=== PATIENT | female | born 1975 | race Caucasian/White ===

== ENCOUNTER 2017-07-14 22:09 | Emergency (ER) | payer OTHER ==
[~2017-07-14] VITALS: Ht 157.5 cm; Wt 64.0 kg
[~2017-07-14 22:09] MED LIST: CALC600T5 PO; IRON45TA2 PO; PREN1TAB17 PO
[2017-07-14 22:13] VITALS: Ht 157.5 cm; Wt 64.0 kg
[2017-07-14] MEDS ORDERED: METOCLOPRAMIDE 10 MG INJ IV STA (23:50)
[2017-07-14] MEDS ORDERED: SOD CHLORIDE 0.9% 1,000 ML IV STA (23:50)
[2017-07-14] MEDS ORDERED: DIPHENHYDRAMINE 50 MG INJ IV STA (23:50)
[2017-07-14] MEDS ORDERED: KETOROLAC 30 MG INJ IV STA (23:50)
--- NOTE | 2017-07-15 01:17 | RADRPT ---
PROCEDURE: Noncontrast CT Head. CLINICAL INDICATION: Headache TECHNIQUE: Noncontrast CT of the head was obtained. The administered radiation dose was CTDI vol = 45 mGy, DLP = 720 mGy-cm. One or more of the following dose reduction techniques were used: automate d exposure control, adjustment of the mA and/or kV according to patient size and/or use of iterative reconstruction technique. COMPARISON: No pertinent prior examinations were submitted for comparison. FINDINGS: The ventricles and sulci are within normal limits. There is no acute intracranial hemorrhage or ext ra-axial fluid collection. There is no mass effect. No midline shift is identified. There is no loss of martin-white differentiation to suggest acute infarction. The orbits are within normal limits. The paranasal sinuses and mastoid air cells are without fluid. No destructive osseous lesion is identified. IMPRESSION: No acute findings. RPTAT: HIKT .Osmar Rodríguez MD, MD Date Time Electronically viewed and signed by .Osmar Rodríguez MD, on 07/15/2017 01:17 .T/
[2017-07-15] MEDS ORDERED: ONDA4TAB11 PO (01:33)
[2017-07-15] MEDS ORDERED: EXCED PO (01:33)
--- NOTE | 2017-07-15 01:38 | ERD ---
ER Documentation Chief Complaint Date/Time DATE: 07/15/17 TIME: 01:36 Chief Complaint WALSH x45 min [employer], "neck feels stiff" -nausea. -light sensitivity Took Advil HPI 41-year-old female presents with headache that began at about 9:30 PM tonight. She states it was gradual in onset and bilateral frontal and radiates to her neck. She has nausea but no vomiting. No photosensitivity or changes to her vision. She is not diabetic. She took ibuprofen and it only helped a little bit. No fever. No trauma. ROS All systems reviewed and are negative except as per history of present illness. Medications Home Meds Active Scripts Ondansetron (Zofran Odt) 4 Mg Tab.rapdis, 4 MG PO Q6, #20 Prov:ABEL ELIAS PA-C 07/15/17 Acetaminophen/Aspirin/Caffeine* (Excedrin*) 1 Tab Tab, 1 TAB PO Q6, #30 TAB Prov:ABEL ELIAS PA-C 07/15/17 Reported Medications Iron,Carbonyl (IRON) 45 Mg Tablet, 45 MG PO DAILY 06/21/13 Calcium Carbonate (CALCIUM) 600 Mg Tablet, 600 MG PO DAILY 06/21/13 Vit-Iron Fumarate-FA ( Tablet) 1 Each Tablet, 1 EACH PO DAILY 06/20/13 Allergies Allergies: Uncoded Allergies: NKDA (Allergy, Unknown, 06/20/13) PMhx/Soc Medical and Surgical Hx: pt denies Medical Hx, pt denies Surgical Hx Hx Alcohol Use: No Hx Substance Use: No Hx Tobacco Use: No Smoking Status: Never smoker FmHx Family History: No diabetes Physical Exam Vitals Vital Signs Date Time Temp Pulse Resp B/P Pulse Ox O2 Delivery O2 Flow Rate FiO2 07/14/17 22:13 99.0 72 18 156/96 99 Physical Exam INITIAL VITAL SIGNS: Reviewed by me GENERAL: Awake, alert and oriented x 4, well appearing, nontoxic, speaking in full sentences. No acute distress HEAD: Atraumatic NECK: Supple. No masses. Full range of motion. No meningismus. No midline tenderness. THROAT: No tonilar erythema or edema. No exudates. Uvula midline. No kissing tonsils. RESPIRATORY: Clear to auscultation bilaterally. Symmetric chest wall rise. No wheezing or rales. No accessory muscle use. CV: Regular rate and rhythm. No murmurs, rubs, or gallops. ABDOMEN: Soft, non-distended. Nontender. Negative [place]. Negative McBurneys point tenderness. No CVA tenderness bilaterally. No guarding. No rebound. EXTREMITIES: No clubbing or cyanosis. No edema. Moving all extremities normally. NEUROLOGIC: Normal mental status and speech. Face is symmetric. Moves all extremities equally. Motor and sensory distally intact. Normal coordination. Ambulates with a strong steady gait. Results 24 hrs Laboratory Tests Test 07/15/17 01:31 Bedside Glucose 100mg/dL Current Medications Medications (Trade) Dose Ordered Sig/Kim Route PRN Reason Start Time Stop Time Status Last Admin Dose Admin Sodium Chloride (NS) 1,000 ml @ 1,000 mls/hr Q1H STAT IV 07/14/17 23:50 07/15/17 00:49 DC 07/15/17 00:18 Metoclopramide HCl (Reglan) 10 mg ONCE STAT IV 07/14/17 23:50 07/14/17 23:52 DC 07/15/17 00:18 Ketorolac Tromethamine (Toradol) 30 mg ONCE STAT IV 07/14/17 23:50 07/14/17 23:52 DC 07/15/17 00:18 Diphenhydramine HCl (Benadryl) 12.5 mg ONCE STAT IV 07/14/17 23:50 07/14/17 23:52 DC 07/15/17 00:19 Procedures/MDM 41-year-old female presents with headache. The differential diagnosis includes but is not limited to subdural hematoma, epidural hematoma, intracerebral hemorrhage, occult trauma, CVA, meningitis, encephalitis, hypertension, tension , migraine, cluster, cervical spine disease, and others. Patient's blood pressure was elevated (>120/80) but appears stable without evidence of hypertension emergency or urgency. The patient was counseled about the risks of hypertension and urged to pursue outpatient monitoring and therapy within a week with their primary care physician. Otherwise vital signs are within normal limits. Her neurological examination is normal. CT scan showed no acute abnormalities. She was given IV fluids and Reglan and Benadryl and Toradol with improvement of her symptoms. She was discharged with Zofran and Excedrin. Accu-Chek was 100. Patient counseled regarding my diagnostic impression and care plan. Prior to discharge all questions answered. Pt agrees with treatment plan and understands strict return precautions. Pt is instructed to follow up with primary care provider within 24- 48 hours. Precautionary instructions provided including instructions to return to the ER if not improving or for any worsening or changing symptoms or concerns. Departure Diagnosis: Primary Impression: Headache Condition: Stable Patient Instructions: Self-Care for Headaches Additional Instructions: Llame al doctor YONG y gaviota naima MARNI PARA DENTRO DE 1-2 JOHNSON.Dgale a la secretaria que nosotros le instruimos hacer esta marni.Avise o llame si raphael condicin se empeora antes de la marni. Regresa aqui si peor o no mejor. ABEL ELIAS PA-C Jul 15, 2017 01:38
[2017-07-15 01:51] VITALS: BP 138/84; PULSE 70; RESP 18; TEMP 99
== END 2017-07-15 01:51 | disposition home or self-care (01) ==
LOC: FTE 22:09
DX: R51 Headache (principal)
CPT/HCPCS: 70450; 82962; 96374; 96375; 99285; J1200; J1885; J2765; J7030

== ENCOUNTER 2017-07-29 11:41 | Emergency (ER) | payer MEDICAID ==
[~2017-07-29] VITALS: Ht 154.9 cm; Wt 63.5 kg
[~2017-07-29 11:41] MED LIST changes: +EXCED PO; +ONDA4TAB11 PO
[2017-07-29 11:48] VITALS: Ht 154.9 cm; Wt 63.5 kg
[2017-07-29 13:24] LABS: URINE BLOOD (Dip) POC Trace-lysed (NEGATIVE)
--- NOTE | 2017-07-29 14:03 | ERD ---
ER Documentation Chief Complaint Chief Complaint "WARMTH IN CHEST" WITH HIGH BLOOD PRESSURE LAST NIGHT. LOTS OF STRESS. HPI This 41-year-old female presents with complaints of elevated blood pressure that she checked at home yesterday. Was 170/90. She rechecked it was 130/80. She is also been under a lot of stress and feels possible sensation of warmth in her chest. She denies any current chest pain, shortness breath, fevers, recent illnesses. She denies any history of high cholesterol, treated hypertension, family history, smoking, diabetes. ROS All systems reviewed and are negative except as per history of present illness. Medications Home Meds Active Scripts Ondansetron (Zofran Odt) 4 Mg Tab.rapdis, 4 MG PO Q6, #20 Prov:ABEL ELIAS PA-C 07/15/17 Acetaminophen/Aspirin/Caffeine* (Excedrin*) 1 Tab Tab, 1 TAB PO Q6, #30 TAB Prov:ABEL ELIAS PA-C 07/15/17 Reported Medications Iron,Carbonyl (IRON) 45 Mg Tablet, 45 MG PO DAILY 06/21/13 Calcium Carbonate (CALCIUM) 600 Mg Tablet, 600 MG PO DAILY 06/21/13 Vit-Iron Fumarate-FA ( Tablet) 1 Each Tablet, 1 EACH PO DAILY 06/20/13 Allergies Allergies: Uncoded Allergies: NKDA (Allergy, Unknown, 06/20/13) PMhx/Soc Medical and Surgical Hx: pt denies Medical Hx, pt denies Surgical Hx History of Surgery: No Anesthesia Reaction: No Hx Neurological Disorder: No Hx Respiratory Disorders: No Hx Cardiac Disorders: No Hx Psychiatric Problems: No Hx Miscellaneous Medical Probl: No Hx Alcohol Use: No Hx Substance Use: No Hx Tobacco Use: No Smoking Status: Never smoker Physical Exam Vitals Vital Signs Date Time Temp Pulse Resp B/P Pulse Ox O2 Delivery O2 Flow Rate FiO2 07/29/17 11:48 98.4 80 18 139/93 99 Physical Exam Const: [], Not ill-appearing. Head: Atraumatic Eyes: Normal Conjunctiva ENT: Normal External Ears, Nose and Mouth. Neck: Full range of motion..~ No meningismus. Resp: Clear to auscultation bilaterally Cardio: Regular rate and rhythm, no murmurs Abd: Soft, non tender, non distended. Normal bowel sounds Skin: No petechiae or rashes Back: No midline or flank tenderness Ext: No cyanosis, or edema Neur: Awake and alert Psych: Normal Mood and Affect Results 24 hrs Laboratory Tests Test 07/29/17 13:26 Bedside Urine pH (LAB) 7.0 Bedside Urine Protein (LAB) Negative Bedside Urine Glucose (UA) Negative Bedside Urine Ketones (LAB) Negative Bedside Urine Blood Trace-lysed Bedside Urine Nitrite (LAB) Negative Bedside Urine Leukocyte Esterase (L Negative Procedures/MDM Is negative for acute findings. There is trace hemoglobin. HCG is negative. EKG: Rate/Rhythm: [Normal Sinus Rhythm] rate equals 65 QRS, ST, T-waves: [No changes consistent w/ acute ischemia] Impression: [No evidence of ischemia or arrhythmia] Bones and pleasant throughout the ED course. Patient presents with mildly elevated blood pressure. Recommending further observation at home and repeat blood pressure care follow-up. Patient shows no signs or symptoms to suggest endorgan damage or hypertensive urgency or emergency. Patient was given information on stress reduction as well. Patient should return to the ER for new or worsening symptoms or primary care doctor. The patient was stable with no new complaints during the ER course. Clinically, there is no current evidence to suggest meningitis, sepsis, acute abdomen, pneumonia, acute coronary syndrome, pulmonary embolism, or any other emergent condition appearing to require further evaluation or hospitalization. The patient should certainly return for any new or worsening symptoms per the aftercare instructions. They should otherwise follow-up with her primary care doctor for reevaluation this week. Departure Diagnosis: Primary Impression: Stress Additional Impression: Hypertension Hypertension type: unspecified Qualified Code: I10 - Hypertension, unspecified type Condition: Stable Patient Instructions: Stress Relief: Relaxation, Stress Relief: Changing Your Response, Hypertension, To Be Confirmed Additional Instructions: EKG and urine normal today. Recommend further observation of blood pressure at home and follow-up with primary doctor. Recommend check blood pressure for any caffeine in the mornings and keep a log and follow-up with primary doctor as directed. Recheck otherwise for new or worsening symptoms. LYNDSAY ROJAS MD Jul 29, 2017 14:02
== END 2017-07-29 14:17 | disposition home or self-care (01) ==
LOC: FTE 11:41
DX: F43.9 Reaction to severe stress, unspecified (principal)
CPT/HCPCS: 81003; 93005; Z7502